=== PATIENT | male | born 1985 | race Caucasian/White ===

== ENCOUNTER 2018-03-12 13:44 | Emergency (ER) | payer OTHER ==
[2018-03-12 15:14] VITALS: BP 138/91
--- NOTE | 2018-03-12 15:24 | UC ---
Dental HPI - HPI Summary HPI Summary: Patient received dental work about 1 week ago, was put on special tooth paste and mouth wasth, developed enlarged taste buds on the back of his tongue. They are not painful. he is also complaining that his tongue is orange. this is not noticable on exam. denies any other symtpoms - History of Current Complaint Stated Complaint: SWOLLEN TASTE BUDS,ORANGE TONGUE Time Seen by Provider: 03/12/18 15:07 Hx Obtained From: Patient Onset/Duration: Sudden Onset, Lasting Days Severity: Mild Pain Intensity: 0 - Allergies/Home Medications Allergies/Adverse Reactions: Allergies Allergy/AdvReac Type Severity Reaction Status Date / Time No Known Allergies Allergy Verified 03/12/18 15:14 Home Medications: Home Medications Omeprazole CAP* [Prilosec CAP* 20 MG] 20 mg PO DAILY 03/12/18 [History Confirmed 03/12/18] PMH/Surg Hx/FS Hx/Imm Hx Previously Healthy: Yes - Surgical History Surgical History: Yes Surgery Procedure, Year, and Place: hernia - Family History Known Family History: Positive: Hypertension - Social History Alcohol Use: Occasionally Substance Use Type: None Smoking Status (MU): Former Smoker When Did the Patient Quit Smoking/Using Tobacco: 1 year ago Review of Systems All Other Systems Reviewed And Are Negative: Yes Constitutional: Positive: Negative Skin: Positive: Negative Eyes: Positive: Negative ENT: Positive: Other - enlarged taste buds Respiratory: Positive: Negative Cardiovascular: Positive: Negative Gastrointestinal: Positive: Negative Genitourinary: Positive: Negative Motor: Positive: Negative Neurovascular: Positive: Negative Musculoskeletal: Positive: Negative Neurological: Positive: Negative Psychological: Positive: Negative Is Patient Immunocompromised?: No Physical Exam Triage Information Reviewed: Yes Appearance: Well-Appearing, No Pain Distress, Well-Nourished Vital Signs: Initial Vital Signs Temp 98.3 F 03/12/18 15:11 Pulse 72 03/12/18 15:11 Resp 16 03/12/18 15:11 BP 138/91 03/12/18 15:11 Pulse Ox 97 03/12/18 15:11 Vital Signs Reviewed: Yes Eye Exam: Normal ENT Exam: Normal Dental: Positive: Other: - enlarged taste buds on salo back of the tongue, slight white coating of tongue noted Neck exam: Normal Respiratory Exam: Normal Respiratory: Positive: Chest non-tender, Lungs clear, Normal breath sounds Cardiovascular Exam: Normal Cardiovascular: Positive: RRR, No Murmur, Pulses Normal Abdominal Exam: Normal Abdomen Description: Positive: Nontender, No Organomegaly, Soft Bowel Sounds: Positive: Present Musculoskeletal Exam: Normal Neurological Exam: Normal Psychological Exam: Normal Skin Exam: Normal Dental Complaint Course/Dx - Course Course Of Treatment: hx obtained, exam performed ,meds reviewed, no further treatment given - Differential Dx/Diagnosis Differential Diagnosis/Dx: Gingivitis, Peridontic Disease Provider Diagnosis: Papillitis Discharge - Sign-Out/Discharge Documenting (check all that apply): Patient Departure All imaging exams completed and their final reports reviewed: No Studies - Discharge Plan Condition: Stable Disposition: HOME Referrals: No Primary Care Phys,NOPCP [Primary Care Provider] - Additional Instructions: 1. Continue using what the denist advised. 2. Salt water gargles may help calm the inflammation 3. The swollen tastes buds should resolve on their own. - Billing Disposition and Condition Condition: STABLE Disposition: Home - Attestation Statements Provider Attestation: Per institutional requirements, I have reviewed the chart, however, I was not consulted specifically or made aware of this patient by the midlevel provider. I did not personally evaluate, interact with , or disposition this patient.
== END 2018-03-12 15:35 | disposition home or self-care (01) ==
LOC: UCCORT 13:44
DX: H46.00 Optic papillitis, unspecified eye (principal); Z87.891 Personal history of nicotine dependence
CPT/HCPCS: 99201; G0463

== ENCOUNTER 2019-03-24 13:25 | Emergency (ER) | payer OTHER ==
[2019-03-24 14:27] VITALS: BP 140/84
--- NOTE | 2019-03-24 14:51 | UC ---
Eye Complaint HPI - HPI Summary HPI Summary: Pt presents with c/o bilateral eye redness, bilateral upper eye lid swelling, pt was has been using his son's erythromycin eye ointment nightly X 3 days. Pt states that his symptoms have not improved with use of ointment. Pt states that he has been crying "alot" as his mother recently and has a celebration of life ceremony in one hour. - History of Current Complaint Chief Complaint: UCEye Stated Complaint: BI LAT EYE CONCERN Time Seen by Provider: 03/24/19 14:43 Hx Obtained From: Patient Onset/Duration: Gradual Onset, Lasting Days, Worse Since - onset Timing: Constant Severity Initially: Mild Severity Currently: Moderate Pain Intensity: 7 Aggravating Factor(s): Nothing Associated Signs And Symptoms: Positive: Drainage (Clear), Swelling - Risk Factors Penetrating Injury Risk Factor: Negative Acute Glaucoma Risk Factors: Eye Inflammation Optic Artery Occlusion Risk Factors: Negative - Allergies/Home Medications Allergies/Adverse Reactions: Allergies Allergy/AdvReac Type Severity Reaction Status Date / Time No Known Allergies Allergy Verified 03/24/19 14:22 PMH/Surg Hx/FS Hx/Imm Hx Previously Healthy: Yes - Surgical History Surgical History: Yes Surgery Procedure, Year, and Place: hernia - Family History Known Family History: Positive: Hypertension - Social History Occupation: Employed Full-time Lives: With Family Alcohol Use: Occasionally Substance Use Type: None Smoking Status (MU): Light Every Day Tobacco Smoker Type: Cigarettes Amount Used/How Often: 1/4 PPD Have You Smoked in the Last Year: Yes When Did the Patient Quit Smoking/Using Tobacco: 1 year ago - Immunization History Vaccination Up to Date: Yes Review of Systems All Other Systems Reviewed And Are Negative: Yes Constitutional: Positive: Negative Skin: Positive: Negative Eyes: Positive: Drainage, Eye Redness, Other - scleritis, upper and lower eyelid swelling. ENT: Positive: Negative Respiratory: Positive: Negative Cardiovascular: Positive: Negative Gastrointestinal: Positive: Negative Genitourinary: Positive: Negative Motor: Positive: Negative Neurovascular: Positive: Negative Musculoskeletal: Positive: Negative Neurological: Positive: Negative Psychological: Positive: Negative Is Patient Immunocompromised?: No Physical Exam Triage Information Reviewed: Yes Appearance: Pain Distress Vital Signs: Initial Vital Signs Temp 98.6 F 03/24/19 14:22 Pulse 82 03/24/19 14:22 Resp 16 03/24/19 14:22 BP 140/84 03/24/19 14:22 Pulse Ox 98 03/24/19 14:22 Vital Signs Reviewed: Yes Eyes: Positive: Conjunctiva Inflamed, Other: - sclera inflammation, clear drainage, upper and lower eyelid swelling. No c/o of vision changes. ENT: Positive: Nasal congestion Dental Exam: Normal Neck exam: Normal Respiratory: Positive: No respiratory distress Musculoskeletal Exam: Normal Neurological Exam: Normal Psychological Exam: Normal Skin Exam: Normal Eye Complaint Course/Dx - Differential Dx/Diagnosis Differential Diagnosis/HQI/PQRI: Keratitis Provider Diagnosis: Redness of both eyes, Swelling of left eyelid, Swelling of right eyelid Discharge ED - Sign-Out/Discharge Documenting (check all that apply): Patient Departure All imaging exams completed and their final reports reviewed: No Studies - Discharge Plan Condition: Stable Disposition: HOME Prescriptions: Cetirizine* [ZyrTEC 10 MG TAB*] 10 mg PO DAILY #10 tab predniSONE TAB* [Deltasone 20 MG TAB*] 60 mg PO DAILY #12 tab Patient Education Materials: Conjunctivitis (ED), Cold Compress or Soak (ED) Referrals: No Primary Care Phys,NOPCP [Primary Care Provider] - Delonte Ye MD [Medical Doctor] - Additional Instructions: Please follow up with a eye care provider as soon as possible. If your symptoms worsen please seek care at the closest emergency room as soon as possible. - Billing Disposition and Condition Condition: STABLE Disposition: Home - Attestation Statements Provider Attestation: I was available for consult. This patient was seen by the [facility]. The patient was not presented to, seen by, or examined by me. -Monica
== END 2019-03-24 15:02 | disposition home or self-care (01) ==
LOC: UCCORT 13:25
DX: H57.89 Other specified disorders of eye and adnexa (principal); F17.210 Nicotine dependence, cigarettes, uncomplicated
CPT/HCPCS: 99212; G0463